=== PATIENT | male | born 1955 | race Caucasian/White ===

== ENCOUNTER 2022-12-16 20:53 | Emergency (ER) | payer MEDICARE, OTHER, SELFPAY ==
[2022-12-16 20:56] VITALS: BP 149/108; PULSE 67; RESP 18; TEMP 36.4; O2SAT 98
[2022-12-16] MEDS: FLUORESCEIN SOD 1 MG/STRIP EACH EYE (21:15)
[2022-12-16] MEDS: TETRACAINE HCL 0.5% OPHTH SOLN 4 ML BTL 1 DROP EACH EYE (21:15)
--- NOTE | 2022-12-16 21:34 | ED.EYEPROB ---
HPI - Eye Problem General Chief complaint: Eye Problems Stated complaint: something stuck in R eye Time Seen by Provider: 12/16/22 21:02 History of Present Illness HPI Narrative: Patient is a 67-year-old male here for evaluation of right eye pain x1 hour. Patient states that he was outside with some friends and he believes a bug flew into his eye. He has since had some redness, increased tearing, and pain to the eye. He has not seen any visible foreign body or bug in the eye. He denies any blurry vision, nausea, vomiting. He does not wear contact lenses or glasses. He did have a diffuse frontal headache earlier today that he attributes to sinus disease, took an aspirin prior to arrival. Related Data Allergies Allergy/AdvReac Type Severity Reaction Status Date / Time poison sumac extract Allergy Unknown Rash Verified 12/16/22 21:15 Review of Systems Review of Systems: Gen.: Denies fevers or chills Eyes: Reports eye pain ENT: Denies congestion Respiratory: Denies shortness of breath or cough CV: Denies chest pain or palpitations GI: Denies abdominal pain nausea, emesis or diarrhea denies burning, urgency, frequency or hematuria Musculoskeletal: Denies back pain or muscle pain Neuro: Denies numbness, tingling, weakness or focal weakness Skin: Denies rash Except as documented, all other systems reviewed and negative Exam Narrative: Gen: Alert, oriented, no acute distress Eyes: Pupils are 2 mm, equal and reactive to light. Extraocular motions intact. Fluorescein exam reveals no distinct area of uptake but has several areas of streaking throughout the eye. Julian sign is negative. Head: No scalp tenderness. Pulm: Respirations even and unlabored, symmetric thorax expansion, no audible stridor or visible cyanosis CV: Regular rate per telemetry GI: No distension, no voluntary/involuntary guarding Neuro: AOx4, moves all extremities without apparent difficulty or weakness, follows commands Skin: No jaundice, no visible bruising, rashes, lesions or wounds on exposed skin Psych: Normal mood/affect, insight/judgement good, adequate fund of knowledge, recent/remote memory intact Course Vital Signs Vital signs: Vital Signs Temperature 97.5 F L 12/16/22 20:56 Pulse Rate 67 12/16/22 20:56 Respiratory Rate 18 12/16/22 20:56 Blood Pressure 149/108 H 12/16/22 20:56 Pulse Oximetry 98 12/16/22 20:56 Oxygen Delivery Room Air 12/16/22 20:56 Temperature 97.5 F L 12/16/22 20:56 Pulse Rate 67 12/16/22 20:56 Respiratory Rate 18 12/16/22 20:56 Blood Pressure 149/108 H 12/16/22 20:56 Pulse Oximetry 98 12/16/22 20:56 Oxygen Delivery Room Air 12/16/22 20:56 MDM - Eye Problem MDM Narrative Medical decision making narrative: 67-year-old male here for evaluation of right eye pain, believes a bug flew into his eye earlier today. His pupils are equal round and reactive to light, fluorescein exam with no discrete area of uptake, Julian sign is negative, no visible foreign body, eyelids were everted and swept. Patrice-Pen pressures are equal at 17 bilaterally. No scalp tenderness to suggest temporal arteritis. Visual acuity is 20/25 in the affected eye and 20/30 in the normal eye. He denies any acute changes to his vision. We will send home with erythromycin eye ointment and ophthalmology follow-up. We discussed return precautions and he voiced understanding. Discharge Plan Discharge Clinical Impression: Corneal abrasion Patient Disposition: Home, Self-Care Condition: Stable Instructions: Antibiotic Form, Corneal Abrasion (ED) Additional Instructions: You likely have a corneal abrasion that is causing your symptoms. Please use the erythromycin eye ointment as directed. Follow-up with the eye doctor next week, you may contact [facility] at [phone]. Return to the emergency department if you lose your vision, you have worsening headaches, worsening pain. Prescriptions: N
== END 2022-12-16 21:32 | disposition home or self-care (01) ==
LOC: ANHED 21:28
PROVIDERS: Emergency Provider Physician Assistant
DX: S05.01XA Injury of conjunctiva and corneal abrasion without foreign body, right eye, initial encounter (principal); W22.8XXA Striking against or struck by other objects, initial encounter
CPT/HCPCS: 99283

== ENCOUNTER 2024-02-19 01:50 | Day surgery (SDC) | payer MEDICARE, OTHER, SELFPAY ==
[2024-02-03 10:00] VITALS: BMI 28.0
[2024-02-19 09:06] VITALS: BP 128/84; PULSE 90; RESP 18; TEMP 36.3; O2SAT 98; BMI 27.1
[2024-02-19] MEDS: LACTATED RINGERS 1,000 ML 150 ML IV CONT (09:16)
--- NOTE | 2024-02-19 09:33 | P.PNAN_ITS ---
Anes - Initial Pre Proc Eval Procedure: Operation Date: 02/19/24 09:30 Proposed Procedures p Esophagogastroduodenoscopy&Screen Colon - Cuate Lima DO Date/Time: 02/19/24 09:33 Surgeon: Cuate Lima DO Pre Op Diagnosis: Neoplasm screening & GERD Patient Data Age: 68 Gender: M Height: 1.78 m Weight: 86 kg Last Vital Signs Temp 97.3 F L 02/19/24 09:06 Pulse 90 02/19/24 09:06 Resp 18 02/19/24 09:06 BP 128/84 02/19/24 09:06 Pulse Ox 98 02/19/24 09:06 O2 Del Method Room Air 02/19/24 09:06 Allergies Allergy/AdvReac Type Severity Reaction Status Date / Time poison sumac extract Allergy Unknown Rash Verified 02/19/24 09:05 Home Medications Medication Instructions Recorded Confirmed Type famotidine 40 mg tablet 40 mg PO HS 02/03/24 02/19/24 History Patient hx anesthesia problems: none Family hx anesthesia problems: none Results Review: All pre-operative results and documents have been reviewed as part of the pre- operative evaluation. PMF Social History Social History Smoking status: Never smoker Alcohol intake: former Substance use: never Substance use type: does not use Living arrangements: with family Spiritual care concerns: No Anes - Eval Final PreProcedure Day of Procedure 02/19/24 09:33 Patient weight: normal Heart: regular rate and rhythm Lungs: clear to auscultation Airway: Mallampati scale Neurological: alert and oriented Last oral intake: >/= 8 hours Emergent: no Anesthetic plan: proceed Anesthesia type and monitoring: general GIVS and standard monitoring Results Review: All pre-operative results and documents have been reviewed as part of the pre- operative evaluation. Informed Consent: The patient's anesthetic plan and its attendant risks and benefits were discussed with the patient/family/POA. Questions were solicited and answers provided to the satisfaction of the patient/family/POA.
--- NOTE | 2024-02-19 09:44 | PM.IMHP ---
H&P: HPI History of Present Illness Date/Time: 02/19/24 09:44 Chief Complaint: GERD, history of colon polyps Narrative: this is a 68-year-old man who presents for EGD and colonoscopy. He has a history of GERD and takes famotidine. he had a colonoscopy about 5 years ago and polyps were removed at that time. He denies any hematochezia or melena. He denies any family history of colon cancer. Review of Systems Review of Systems: All systems reviewed & are unremarkable except as noted in HPI and below Constitutional: Constitutional: Denies chills, Denies fever(s), Denies headache(s) and Denies weight loss Eyes: Eyes: Denies change in vision ENT: Denies dizziness, Denies headache(s), Denies neck mass and Denies throat swelling Cardiovascular: Cardiovascular: Denies chest pain, Denies lightheadedness and Denies dyspnea Respiratory: Respiratory: Denies cough, Denies dyspnea and Denies wheezing Gastrointestinal: Gastrointestinal: Denies abdominal pain, Denies change in bowel habits, Denies nausea and Denies vomiting Genitourinary: Genitourinary: Denies hematuria and Denies dysuria Musculoskeletal: Musculoskeletal: Reports as per HPI Integumentary/Breasts: Skin/Breast: Reports as per HPI Neurologic: Denies dizziness and Denies headache(s) Allergic/Immunologic: Allergic/Immunologic: Denies throat swelling and Denies wheezing PMFSH Social History Social History Smoking status: Never smoker Alcohol intake: former Substance use: never Substance use type: does not use Living arrangements: with family Spiritual care concerns: No Meds Home Medications and Allergies Home Medications Medication Instructions Recorded Confirmed Type famotidine 40 mg tablet 40 mg PO HS 02/03/24 02/19/24 History Allergies Allergy/AdvReac Type Severity Reaction Status Date / Time poison sumac extract Allergy Unknown Rash Verified 02/19/24 09:05 Vital Signs Vital Signs - 24 hr 02/19/24 09:06 Temperature 36.3 C L Pulse Rate 90 Respiratory Rate 18 Blood Pressure 128/84 Pulse Oximetry 98 Oxygen Delivery Room Air Exam Const: General: no acute distress and alert Orientation/consciousness: patient oriented x3 HENMT: Head: normocephalic and atraumatic Ears: hearing grossly normal bilaterally Face/Nose/Sinus: Normal nares present Mouth: Yes Normal oral and palatal mucosa present Eyes: Periorbital: periorbital findings normal Sclera: sclerae normal EOM: EOMs intact bilaterally Neck: Neck: normal visual inspection, no lymphadenopathy and trachea midline Chest: Chest palpation & inspection: normal inspection of the chest Resp: Effort & Inspection: normal respiratory effort Auscultation: clear to auscultation bilaterally Cardio: Jugular venous distension: no JVD Rate: regular rate Rhythm: regular rhythm Heart sounds: S1 normal heart sound present and S2 normal heart sound present Peripheral pulses: Peripheral pulses 2+ throughout GI: Inspection: normal to inspection GI Palp: Yes Soft to palpation, No Tenderness to palpation present (GI), No Guarding due to palpation present (GI) and No Rebound tenderness present Percussion: Yes normal to percussion Auscultation: normal bowel sounds : General: Yes no CVA tenderness Back/Spine/Pelvis: Back: no CVA tenderness Neuro: General: patient oriented x3, no focal motor deficits and CN's II-XI intact bilaterally Cognition (Neuro): normal cognition Speech: normal speech Motor exam (neuro): 5/5 motor strength present throughout Extrem: General: capillary refill normal and no clubbing, cyanosis or edema Assessment and Plan Assessment and plan (1) Screening for colorectal cancer: Code(s): Z12.11 - Encounter for screening for malignant neoplasm of colon; Z12.12 - Encounter for screening for malignant neoplasm of rectum Status: Acute Assessment and Plan: I have recommended EGD and colonoscopy. I have discussed the procedure, ri
--- NOTE | 2024-02-19 10:31 | SUR.OPER ---
EGD: Start 958, End 1004 Colonoscopy: [id number], End 1029
[2024-02-19 10:33] VITALS: BP 94/60; PULSE 65; RESP 15; O2SAT 96
[2024-02-19 10:43] VITALS: BP 112/77; PULSE 67; RESP 24; O2SAT 100
[2024-02-19 10:53] VITALS: BP 121/76; PULSE 67; RESP 17; O2SAT 100
[2024-02-19 11:19] LABS: HPYLORIRESULT Negative
== END 2024-02-19 11:18 | disposition home or self-care (01) ==
PROVIDERS: Visit Provider Surgery
PROC: 0DJ08ZZ Inspection of Upper Intestinal Tract, Via Natural or Artificial Opening Endoscopic (ICD-10-PCS; CPT 43235; principal; 2024-02-19 09:30)
DX: Z12.11 Encounter for screening for malignant neoplasm of colon (principal); K57.30 Diverticulosis of large intestine without perforation or abscess without bleeding; K21.00 Gastro-esophageal reflux disease with esophagitis, without bleeding; K29.00 Acute gastritis without bleeding; K29.80 Duodenitis without bleeding; K44.9 Diaphragmatic hernia without obstruction or gangrene; Z86.010 Personal history of colon polyps
CPT/HCPCS: 43239; G0105; 87081; 88305; J2704; J7120